=== PATIENT | female | born 1950 | race Caucasian/White ===

== ENCOUNTER → 2016-06-23 | Outpatient (CLI) | payer MEDICARE, OTHER ==
[~2016-06-23] MED LIST: ACIDOPHILUS PO; ALDACTONE50 MG PO; ALLEGRA-D TABLE1 TAB PO; CITRUCEL WITH500 MG PO; CLARITIN D TAB1 TAB PO; COLACE50 MG PO; DOXYCYCLINE 10100 MG PO; FLEXERIL 1010 MG/TAB PO; FLEXERIL10 MG PO; KLONOPIN0.5 MG PO; LEVAQUIN 250MG250 MG PO; LORTAB 7.5/5001 TAB PO; MOTRIN 200200 MG/TAB PO; MULTIVITAMIN FO1 CAP PO; NAPROXEN 3375 MG/TAB PO; NAPROXEN ER500 MG PO; NAPROXEN375 MG PO; NEURONTIN100 MG PO; NORCO 325 MG-51 TAB PO; PERCOCET 325 MG1 TA2 PO; PRILOSEC 20MG20 MG PO; PRILOTC; SIMVISTATIN PO; STATIN; TYLENOL 500MG500 MG PO; TYLENOL PM EXTR1 TA1 PO; UNKNOWN ANTIBIOTIC PO; VALIUM10 MG PO; VITAMIN C BUFF500 MG PO; WHEY PROTEIN1 PD1; ZESTRIL40 MG PO; ZOCOR 20MG20 MG PO; ZOCOR20 MG PO; ZYLOPRIM100 MG PO; [UNRECOGNIZED DRUG - REMARK]
== END ==
LOC: MC.RAD 09:32
DX: Z12.31 Encounter for screening mammogram for malignant neoplasm of breast (principal)

== ENCOUNTER → 2016-07-26 | Outpatient (CLI) | payer MEDICARE, OTHER ==
[~2016-07-26] VITALS: Ht 160 cm; Wt 86.3 kg
[2016-07-26] VITALS (16 sets, daily range): BP systolic 130–149; BP diastolic 69–758; PULSE 62–76
== END ==
LOC: COL.RAD 06:58
DX: D16.7 Benign neoplasm of ribs, sternum and clavicle (principal); C34.31 Malignant neoplasm of lower lobe, right bronchus or lung
CPT/HCPCS: J2250; J3010

== ENCOUNTER → 2017-09-29 | Outpatient (CLI) | payer MEDICARE, OTHER | LOC: MC.RAD 09:40 | DX: Z12.31 Encounter for screening mammogram for malignant neoplasm of breast (principal) ==

== ENCOUNTER → 2018-03-06 | Outpatient (CLI) | payer MEDICARE, OTHER | LOC: COL.RAD 09:07 | DX: C34.31 Malignant neoplasm of lower lobe, right bronchus or lung (principal); M43.16 Spondylolisthesis, lumbar region | CPT/HCPCS: A9503 ==

== ENCOUNTER → 2018-08-03 | Outpatient (CLI) | payer MEDICARE, OTHER | LOC: COL.RAD 07:30 | DX: D37.5 Neoplasm of uncertain behavior of rectum (principal); M43.8X4 Other specified deforming dorsopathies, thoracic region; M89.9 Disorder of bone, unspecified; K62.89 Other specified diseases of anus and rectum; Z98.890 Other specified postprocedural states | CPT/HCPCS: Q9967 ==

== ENCOUNTER 2018-09-02 10:01 | Emergency (ER) | payer MEDICARE, OTHER ==
[~2018-09-02] VITALS: Ht 160 cm; Wt 72.7 kg
[2018-09-02 10:06] VITALS: TEMP 97
[2018-09-02] MEDS ORDERED: ADVIL200 MG PO (10:13)
[2018-09-02 10:46] LABS: BASO % 0.2 % (0.0-2.0); EOS % 0.2 % (0-4.0); GRAN # 9.5 (1.4-6.5); GRAN % 87.1 % (42.2-75.2); HEMOGLOBIN 10.9 g/dl (12.5-16.0); LYMPH # 0.8 (1.2-3.4); LYMPH % 7.6 % (20.0-51.0); MEAN CELL VOLUME 81 fl (80.0-100.0); MEAN CORPUSCULAR HEMOGLOBIN 25 pg (27.0-31.0); MEAN CORPUSCULAR HGB CONC 31 g/dl (33.0-37.0); MEAN PLATELET VOLUME 8.7 fl (7.4-10.4); MONO # 0.5 (0.1-0.6); MONO % 4.6 % (1.7-9.3); PLATELET COUNT 474 K/mm3 (130-400); RED BLOOD COUNT 4.38 M/mm3 (4.10-5.30); REDCELL DISTRIBUTION WIDTH-CV 16.5 % (11.5-14.5)
[2018-09-02 10:47] LABS: HEMATOCRIT 35.6 % (37.0-47.0)
[2018-09-02 10:56] LABS: ALBUMIN 2.9 gm/dL (3.5-5.0); BILIRUBIN,TOTAL 0.4 mg/dL (0.0-1.0); C-REACTIVE PROTEIN 7.8 mg/dL (0.0-0.9); CALCIUM 9.7 mg/dL (8.4-10.2); CREATININE, serum 0.57 (0.52-1.25); POTASSIUM 3.7 mmol/L (3.4-5.0); TOTAL PROTEIN 6.3 gm/dL (6.4-8.2)
[2018-09-02 14:48] VITALS: BP 135/86; PULSE 90
== END 2018-09-02 14:45 | disposition short-term general hospital (02) ==
LOC: COL.ER 10:01
PROVIDERS: Family Medicine
DX: K56.609 Unspecified intestinal obstruction, unspecified as to partial versus complete obstruction (principal); K62.89 Other specified diseases of anus and rectum
CPT/HCPCS: J2270; J2405; J7030; Q9967

== ENCOUNTER 2018-09-26 11:41 | Inpatient (IN) | payer MEDICARE, OTHER ==
[2018-09-26] VITALS (123 sets, daily range): BP systolic 104–119; BP diastolic 45–66; PULSE 71–78; TEMP 98.1; O2SAT 75–100
[~2018-09-26] VITALS: Ht 160 cm; Wt 69.4 kg
[~2018-09-26 11:41] MED LIST changes: +ADVIL200 MG PO
[2018-09-26 12:34] LABS: MEAN CELL VOLUME 83 fl (80.0-100.0); MEAN CORPUSCULAR HGB CONC 30 g/dl (33.0-37.0); MEAN PLATELET VOLUME 9.5 fl (7.4-10.4); PLATELET COUNT 205 K/mm3 (130-400); RED BLOOD COUNT 3.52 M/mm3 (4.10-5.30); REDCELL DISTRIBUTION WIDTH-CV 18.6 % (11.5-14.5)
[2018-09-26 12:43] LABS: BILIRUBIN,TOTAL 0.2 mg/dL (0.0-1.0); CALCIUM 9.4 mg/dL (8.4-10.2); CREATININE, serum 0.59 (0.52-1.25); POTASSIUM 3.9 mmol/L (3.4-5.0); TOTAL PROTEIN 6.1 gm/dL (6.4-8.2)
[2018-09-26 12:44] LABS: HEMATOCRIT 29.1 % (37.0-47.0); HEMOGLOBIN 8.8 g/dl (12.5-16.0); MEAN CORPUSCULAR HEMOGLOBIN 25 pg (27.0-31.0)
[2018-09-26 13:04] LABS: BAND 28 % (0-10); EOSINOPHIL 1 % (0-4); LYMPHOCYTE 24 % (20.0-51.0); NEUTROPHILS 30 % (42.0-75.2)
[2018-09-26 13:05] LABS: HYPOCHROMIA 2+; PLATELET ESTIMATE NORMAL (NORMAL)
[2018-09-26 13:21] LABS: COLLECTION METHOD CATHETER
[2018-09-26 13:31] LABS: MUCOUS Present /lpf; PH 6 (5-8); SQUAMOUS EPITHELIAL 0-2 /hpf; URINE APPEARANCE Clear; URINE BACTERIA None Seen /hpf; URINE BILIRUBIN Negative (NEGATIVE); URINE BLOOD Negative (NEGATIVE); URINE COLOR Yellow; URINE GLUCOSE Negative (NEGATIVE); URINE KETONE Negative (NEGATIVE); URINE LEUKOCYTE ESTERASE Negative (NEGATIVE); URINE NITRATE Negative (NEGATIVE); URINE PROTEIN(semi-quant) Negative (NEGATIVE); URINE RBC 0-2 /hpf; URINE UROBILINOGEN Negative (NEGATIVE)
[2018-09-26] MEDS ORDERED: MIRALAX PA17 GM/Dose PO (16:45)
--- NOTE | 2018-09-26 17:30 | NUR ---
Report received from Sergey BORGES in ER and pt brought by magali to ICU 3. Pt able to ambulate from stretcher to bathroom then to bed. Placed on monitor and assessment complete. Home meds reviewed and along with orders. Questions answered. Pt resting at this time. Denies any needs or concerns. Will continue to follow.
--- NOTE | 2018-09-26 19:11 | NUR ---
Report given to Genevieve BORGES and care transfered.
--- NOTE | 2018-09-26 19:14 | NUR ---
received report from adiel tejada. medications varified. patient denies any pain at this time. will complete patient assessment at a later time. will continue to monitor.
[2018-09-27] VITALS (374 sets, daily range): BP systolic 111–128; BP diastolic 43–81; PULSE 64–105; TEMP 97.6–98.3; O2SAT 66–100
[2018-09-27 05:20] LABS: ALBUMIN 2.3 gm/dL (3.5-5.0); BILIRUBIN,TOTAL 0.1 mg/dL (0.0-1.0); CALCIUM 9.2 mg/dL (8.4-10.2); CREATININE, serum 0.46 (0.52-1.25); POTASSIUM 3.4 mmol/L (3.4-5.0)
--- NOTE | 2018-09-27 07:20 | NUR ---
gave report to adiel patel.
[2018-09-27 07:49] LABS: HEMOGLOBIN 8.1 g/dl (12.5-16.0); MEAN CELL VOLUME 84 fl (80.0-100.0); MEAN CORPUSCULAR HEMOGLOBIN 25 pg (27.0-31.0); MEAN CORPUSCULAR HGB CONC 30 g/dl (33.0-37.0); MEAN PLATELET VOLUME 9.1 fl (7.4-10.4); PLATELET COUNT 217 K/mm3 (130-400); RED BLOOD COUNT 3.21 M/mm3 (4.10-5.30); REDCELL DISTRIBUTION WIDTH-CV 18.6 % (11.5-14.5)
--- NOTE | 2018-09-27 08:00 | NUR ---
Shift assessment complete at this time. Plan of care reviewed at bedside with patient et spouse. Additional time taken to address any other needs or concerns. Vitals stable at this time. Colostomy stoma pink/red et intact. Reports moderate pain at a scale of 6/10. Reports 4 as tolerable. Will administer PRN Tylenol, see EMAR for documentation. Bed in low position, call light within reach. Will continue to monitor.
--- NOTE | 2018-09-27 08:38 | NUR ---
MARC met with the patient to discuss a discharge plan. The pt lives [place] of [place] with her Chang. The pt does not use any DME and reports independence with ADLs. The pt's PCP is Dr. Mir and the pt receives her medications from [facility]. The pt reports no difficulties obtaining her medications. The pt does not have advanced directives in the EMR, but report she does have them completed and names her as DPOA-HC. The pt plans to return home after discharge. There are no additional needs at this time.
[2018-09-27 09:19] LABS: BAND 35 % (0-10); EOSINOPHIL 5 % (0-4); LYMPHOCYTE 26 % (20.0-51.0); NEUTROPHILS 13 % (42.0-75.2); NUCLEATED RED BLOOD CELL 1 (0-6); PLATELET ESTIMATE NORMAL (NORMAL)
[2018-09-27 09:20] LABS: ANISOCYTOSIS 1+
--- NOTE | 2018-09-27 10:04 | NUR ---
Initial visit; Patient thanked Bakery Supervisor for looking in on her and offering spiritual Care and prayers.
--- NOTE | 2018-09-27 12:00 | NUR ---
Pt resting in bed. Reports tolerable pain and declines any further intervention at this time. Awaiting for medical room to be cleaned and Pt will be transferred. Denies any other discomforts. Vitals stable. Will continue to monitor. Bed in low position, call light within reach.
--- NOTE | 2018-09-27 19:21 | NUR ---
Pt up from ICU late this afternoon, no C/O pain since arriving, Vs have been stable. family has been in the room with Pt.
--- NOTE | 2018-09-27 20:00 | NUR ---
Pt resting with HOB elevated. Family at bedside. 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 Pt was given Tylenol by cinda RN. No distress noted. Respirations even and unlabored. Bilateral lung bases diminished. Bilateral upper lobes clear to auscultation. BS+. Abdomen soft, nontender. LLQ colostomy in place. R chest port flushing well. R H INT discontinued per pt request. Catheter intact. No needs noted at this time.
--- NOTE | 2018-09-27 21:15 | NUR ---
Pt resting. No distress noted. HS medications given. Pt reports that Tylenol given by dayshift is working for pain management. No further needs noted.
[2018-09-28 03:28] VITALS: BP 138/58; PULSE 76; TEMP 98.1
[2018-09-28 06:24] LABS: MEAN CELL VOLUME 82 fl (80.0-100.0); MEAN CORPUSCULAR HGB CONC 31 g/dl (33.0-37.0); MEAN PLATELET VOLUME 9.4 fl (7.4-10.4); PLATELET COUNT 238 K/mm3 (130-400); RED BLOOD COUNT 3.08 M/mm3 (4.10-5.30); REDCELL DISTRIBUTION WIDTH-CV 18.7 % (11.5-14.5)
[2018-09-28 06:26] LABS: HEMATOCRIT 25.2 % (37.0-47.0); HEMOGLOBIN 7.7 g/dl (12.5-16.0); MEAN CORPUSCULAR HEMOGLOBIN 25 pg (27.0-31.0)
[2018-09-28 07:03] LABS: BAND 33 % (0-10); BASOPHIL 1 % (0-2); EOSINOPHIL 9 % (0-4); LYMPHOCYTE 28 % (20.0-51.0); NEUTROPHILS 17 % (42.0-75.2); NUCLEATED RED BLOOD CELL 1 (0-6); PLATELET ESTIMATE NORMAL (NORMAL)
[2018-09-28 07:04] LABS: ANISOCYTOSIS 2+; HYPOCHROMIA 1+; OVALOCYTES 2+
[2018-09-28 07:05] LABS: POLYCHROMASIA 1+
[2018-09-28 07:33] VITALS: BP 138/62; PULSE 52; TEMP 98
[2018-09-28 08:12] LABS: PATHOLOGY DIFF REVIEW OK
--- NOTE | 2018-09-28 10:00 | NUR ---
Pt up in bed sitting on edge of bed, family in room with Pt, Pt asked for PRN Tylenol, shift assessments complete, left Pt call light in reach, bed in lowest position.
[2018-09-28 11:33] VITALS: BP 118/55; PULSE 81; TEMP 97.7
--- NOTE | 2018-09-28 16:44 | NUR ---
Pt discharged to home, all questions / concerns answered, Pt escorted to curbside.
== END 2018-09-28 16:45 | disposition home or self-care (01) | DRG 872 ==
LOC: COL.ER 11:41 → ICU 14:40 → MEDICAL 09-27 12:38
PROVIDERS: Emergency Medicine; Physician Assistant
DX: A41.9 Sepsis, unspecified organism (principal); C20 Malignant neoplasm of rectum; G93.40 Encephalopathy, unspecified; E87.2 Acidosis; I95.9 Hypotension, unspecified; M54.5 Low back pain; E66.9 Obesity, unspecified; E78.5 Hyperlipidemia, unspecified; Z93.3 Colostomy status; Z92.3 Personal history of irradiation; Z90.2 Acquired absence of lung [part of]; Z90.49 Acquired absence of other specified parts of digestive tract; Z88.0 Allergy status to penicillin; Z88.2 Allergy status to sulfonamides; Z92.21 Personal history of antineoplastic chemotherapy; R50.81 Fever presenting with conditions classified elsewhere; D70.9 Neutropenia, unspecified; D55.8 Other anemias due to enzyme disorders; D64.9 Anemia, unspecified; E83.52 Hypercalcemia
CPT/HCPCS: 99223-AI; 99232-AI; 99239; A4216; J0456; J0692; J0696; J1644; J3370; J7030; J7050; J7120

== ENCOUNTER 2018-11-03 09:32 | Inpatient (IN) | payer MEDICARE, OTHER ==
[~2018-11-03] VITALS: Ht 160 cm; Wt 74.5 kg
[2018-11-03] VITALS (496 sets, daily range): BP systolic 105–129; BP diastolic 56–71; PULSE 79–85; TEMP 097.9–98; O2SAT 81–100
[~2018-11-03 09:32] MED LIST changes: +MIRALAX PA17 GM/Dose PO
[2018-11-03 10:23] LABS: MEAN CELL VOLUME 86 fl (80.0-100.0); MEAN CORPUSCULAR HGB CONC 32 g/dl (33.0-37.0); MEAN PLATELET VOLUME 9.6 fl (7.4-10.4); PLATELET COUNT 252 K/mm3 (130-400); RED BLOOD COUNT 3.52 M/mm3 (4.10-5.30)
[2018-11-03 10:29] LABS: HEMATOCRIT 30.1 % (37.0-47.0); HEMOGLOBIN 9.5 g/dl (12.5-16.0); MEAN CORPUSCULAR HEMOGLOBIN 27 pg (27.0-31.0)
[2018-11-03 10:34] LABS: ALBUMIN 2.7 gm/dL (3.5-5.0); BILIRUBIN,TOTAL 0.4 mg/dL (0.0-1.0); CALCIUM 9.2 mg/dL (8.4-10.2); CREATININE, serum 0.54 (0.52-1.25); TOTAL PROTEIN 5.6 gm/dL (6.4-8.2)
[2018-11-03 10:49] LABS: C-REACTIVE PROTEIN 13.4 mg/dL (0.0-0.9)
[2018-11-03 11:54] LABS: ANISOCYTOSIS 4+; BAND 8 % (0-10); LYMPHOCYTE 2 % (20.0-51.0); MYELOCYTE 1 % (0-0); NEUTROPHILS 85 % (42.0-75.2)
[2018-11-03 11:55] LABS: HYPOCHROMIA 2+; PLATELET ESTIMATE NORMAL (NORMAL); TEAR DROP CELLS 1+
--- NOTE | 2018-11-03 15:15 | NUR ---
Report recieved from JONY King
[2018-11-03 15:17] LABS: COLLECTION METHOD CATHETER
[2018-11-03 15:25] LABS: MUCOUS Present /lpf; PH 6 (5-8); SQUAMOUS EPITHELIAL 0-2 /hpf; URINE APPEARANCE Clear; URINE BACTERIA None Seen /hpf; URINE BILIRUBIN Negative (NEGATIVE); URINE BLOOD Negative (NEGATIVE); URINE COLOR Yellow; URINE GLUCOSE Negative (NEGATIVE); URINE KETONE Negative (NEGATIVE); URINE LEUKOCYTE ESTERASE Negative (NEGATIVE); URINE NITRATE Negative (NEGATIVE); URINE PROTEIN(semi-quant) Negative (NEGATIVE); URINE RBC 0-2 /hpf; URINE UROBILINOGEN Negative (NEGATIVE)
--- NOTE | 2018-11-03 15:30 | NUR ---
Pt arrived from ED, pt transfered self by slding from cart to ICU bed - pt did have difficulty d/t weakness. Pt AAOx4 requesting admission questions be directed towards so pt can sleep. Pt did recieve 50mcg Fentanyl prior to transporting to unit, denies pain in abdomen at this time. and [id number] at bedside expressing concern on pt status.
[2018-11-03] MEDS ORDERED: ZOVIRAX 200MG200 MG PO ×2 (18:05→18:06)
--- NOTE | 2018-11-03 19:00 | NUR ---
Bedside report handed off to JONY Rob. , [id number] and grand-daughter at pt's bedside visiting. Pt much more alert than upon admission. Questions invited to pt and family and all answered
--- NOTE | 2018-11-03 19:00 | NUR ---
Report received from Tavares Smith RN. Pt resting in room with family members X3 at bedside. Pt reports pain at this time is 0/10. Denies any wants or needs at this time.
--- NOTE | 2018-11-03 19:00 | NUR ---
Report received from Tavares Smith RN. Pt resting in bed at this time with television on and family X3 at bedside.
[2018-11-04] VITALS (361 sets, daily range): BP systolic 99–137; BP diastolic 52–93; PULSE 73–88; TEMP 97.5–98.5; O2SAT 79–100
--- NOTE | 2018-11-04 03:00 | NUR ---
Pts IV pump is beeping when assessing the pt bowel was noted to be on pts brief. Pt was encouraged to change brief and when drainage was noted to be on the pts sheets while pt was standing at the side of the bed the linens were then changed. Pt assisted with bed change and was stable with movements. Colostomy bag was changed with stoma looking beefy red and moist. Pt denies any pain and no noted sx of pain when up. Drainage noted to brief with change and pt reported that drainage is normal, yellow and light brown in coloration. Pt was independent with sabino care per pt request and was assisted back into bed. Pt refused a bed bath at this time.
--- NOTE | 2018-11-04 07:15 | NUR ---
Report provided to Demetria Valdez RN.
--- NOTE | 2018-11-04 07:30 | NUR ---
Bedside report provided to Annie BORGES.
--- NOTE | 2018-11-04 07:40 | NUR ---
Report received from Liane BORGES and care resumed.
--- NOTE | 2018-11-04 08:30 | NUR ---
Assessment complete. Pt denies any pain at this time. Colostomy appliance noted to be leaking. Pt helped up to bathroom and cleaned up then new appliance applied. Pt denies any further needs at this time. Will continue to follow.
[2018-11-04 09:07] LABS: MEAN CELL VOLUME 87 fl (80.0-100.0); MEAN CORPUSCULAR HGB CONC 30 g/dl (33.0-37.0); MEAN PLATELET VOLUME 9.9 fl (7.4-10.4); PLATELET COUNT 173 K/mm3 (130-400); RED BLOOD COUNT 3.31 M/mm3 (4.10-5.30)
[2018-11-04 09:11] LABS: HEMATOCRIT 28.8 % (37.0-47.0); HEMOGLOBIN 8.6 g/dl (12.5-16.0); MEAN CORPUSCULAR HEMOGLOBIN 26 pg (27.0-31.0)
[2018-11-04 09:22] LABS: ANISOCYTOSIS 2+; BAND 25 % (0-10); LYMPHOCYTE 5 % (20.0-51.0); NEUTROPHILS 67 % (42.0-75.2); PLATELET ESTIMATE NORMAL (NORMAL)
[2018-11-04 09:40] LABS: CALCIUM 8.5 mg/dL (8.4-10.2); CREATININE, serum 0.47 (0.52-1.25); POTASSIUM 3.3 mmol/L (3.4-5.0)
--- NOTE | 2018-11-04 09:51 | NUR ---
Dr Chavis in to see pt at this time. No concerns, will plan to tranfer to floor.
--- NOTE | 2018-11-04 15:43 | NUR ---
Pt remains resting at this time. VSS. Denies any pain. Will continue to follow.
--- NOTE | 2018-11-04 17:22 | NUR ---
Report called to Herrera BORGES. Pt to transfer to medical floor on tele.
--- NOTE | 2018-11-04 17:39 | NUR ---
Pt taken up on tele per wheelchair to room 317.
--- NOTE | 2018-11-04 18:21 | NUR ---
patient arrived to medical floor [address] at this time, she is alert/oriented, stand by transfer from wheelchair to bed, denies pain, vital signs have been stable, denies needs, family present
--- NOTE | 2018-11-04 20:00 | NUR ---
Shift assessment complete. Pt resting in bed, awake, a&o, cooperative c cares. Pt denies pain or any other c/o at this time. IV patent. Ostomy noted to abd, s complication, assisted to change appliance to own supplies per pt request. Pt denies any other needs. Call light in reach, will monitor.
[2018-11-05 04:06] VITALS: BP 124/83; PULSE 80; TEMP 98.9
[2018-11-05 07:03] LABS: MEAN CELL VOLUME 87 fl (80.0-100.0); MEAN CORPUSCULAR HGB CONC 30 g/dl (33.0-37.0); MEAN PLATELET VOLUME 10.2 fl (7.4-10.4); PLATELET COUNT 150 K/mm3 (130-400); REDCELL DISTRIBUTION WIDTH-CV 20.2 % (11.5-14.5)
[2018-11-05 07:15] LABS: ALANINE AMINOTRANSFERASE 14 U/L (9-52); ALKALINE PHOSPHATASE 181 U/L (50-136); ANION GAP 5 mmol/L (7-16); AST,SGOT 11 U/L (15-37); BILIRUBIN,TOTAL < 0.1 mg/dL (0.0-1.0); BLOOD UREA NITROGEN 8 mg/dL (7-17); CALCIUM 8.1 mg/dL (8.4-10.2); CARBON DIOXIDE 25 mmol/L (22-30); CHLORIDE 109 mmol/L (98-107); CREATININE, serum 0.44 (0.52-1.25); GLUCOSE 108 mg/dL (74-106); POTASSIUM 3.2 mmol/L (3.4-5.0); SODIUM 139 mmol/L (137-145); TOTAL PROTEIN 4.5 gm/dL (6.4-8.2)
[2018-11-05 07:32] LABS: HEMATOCRIT 25.3 % (37.0-47.0); HEMOGLOBIN 7.5 g/dl (12.5-16.0); MEAN CORPUSCULAR HEMOGLOBIN 26 pg (27.0-31.0)
--- NOTE | 2018-11-05 08:00 | NUR ---
PATIENT IS A&O. VSS. HR IN 80'S ON TELE. DENIES PAIN. HEAD TO TOE ASSESSMENT WNL. COLOSTOMY SMALL AMOUNTS OF STOOL AND GAS NOTED IN BAG. WAFER INTACT. ABDOMIN IS SOFT, ROUND AND WITH POSITIVE BOWL SOUNDS. INDEPENDENT IN ROOM. PATIENT REPORTS WEAKNESS IS BETTER AND FEELS MUCH BETTER. PATIENT HOPING TO DISCHARGE HOME TODAY. AM MEDS GIVEN. NO OTHER NEEDS AT THIS TIME.
[2018-11-05 08:43] LABS: ANISOCYTOSIS 1+; BAND 37 % (0-10); LYMPHOCYTE 9 % (20.0-51.0); NEUTROPHILS 53 % (42.0-75.2); PLATELET ESTIMATE NORMAL (NORMAL)
[2018-11-05 08:44] LABS: HYPOCHROMIA 2+; POIKILOCYTOSIS 1+; TARGET CELLS 1+
[2018-11-05 09:01] VITALS: BP 155/80; PULSE 73; TEMP 98
[2018-11-05 11:05] VITALS: BP 144/87; PULSE 80; TEMP 98.6
--- NOTE | 2018-11-05 11:48 | NUR ---
First visit from the district associate judge. No needs right now.
--- NOTE | 2018-11-05 15:50 | NUR ---
MARC met with the patient to discuss discharge plan. The patient lives [place] miles north of [place] with her , Chang. She reports independence with ADLs and has a cane and walker. The patient's PCP was Dr. Melany Mir, but has since switched since Dr. Mir moved. The patient could not recall who she was switched to. She receives her medications at [facility] and she reports no difficulties obtaining her meds. The patient does not have advanced directives in EMR, but she states that she does have them completed and at home. She states her is her DPOA-HC. The patient plans to return home with her upon discharge. No additional needs at this time.
[2018-11-05 15:58] VITALS: BP 145/52; PULSE 81; TEMP 99.3
[2018-11-05 19:49] VITALS: BP 133/71; PULSE 82; TEMP 98.9
[2018-11-06 00:38] VITALS: BP 130/61; PULSE 84; TEMP 99.8
[2018-11-06 04:32] VITALS: BP 122/81; PULSE 83; TEMP 99
[2018-11-06 07:41] VITALS: BP 121/54; PULSE 79; TEMP 98
[2018-11-06 07:47] LABS: MEAN CELL VOLUME 87 fl (80.0-100.0); MEAN CORPUSCULAR HGB CONC 30 g/dl (33.0-37.0); MEAN PLATELET VOLUME 10.3 fl (7.4-10.4); PLATELET COUNT 169 K/mm3 (130-400); RED BLOOD COUNT 3.04 M/mm3 (4.10-5.30)
[2018-11-06 07:49] LABS: HEMATOCRIT 26.4 % (37.0-47.0); HEMOGLOBIN 7.9 g/dl (12.5-16.0); MEAN CORPUSCULAR HEMOGLOBIN 26 pg (27.0-31.0)
[2018-11-06 07:58] LABS: ALBUMIN 2.3 gm/dL (3.5-5.0); BILIRUBIN,TOTAL 0.1 mg/dL (0.0-1.0); CALCIUM 8.7 mg/dL (8.4-10.2); CREATININE, serum 0.45 (0.52-1.25); POTASSIUM 3.1 mmol/L (3.4-5.0); TOTAL PROTEIN 4.8 gm/dL (6.4-8.2)
--- NOTE | 2018-11-06 08:00 | NUR ---
resting in bed, full assessment completed, see interventions for further info,
[2018-11-06 08:25] LABS: BAND 9 % (0-10); EOSINOPHIL 2 % (0-4); LYMPHOCYTE 8 % (20.0-51.0); NEUTROPHILS 78 % (42.0-75.2); PLATELET ESTIMATE NORMAL (NORMAL)
--- NOTE | 2018-11-06 09:20 | NUR ---
resting in bed visiting with her , denies needs, am meds provided
[2018-11-06] MEDS ORDERED: OMNICEF 300MG300 MG PO (10:05)
[2018-11-06] MEDS ORDERED: FLAGYL500 MG PO (10:05)
[2018-11-06] MEDS ORDERED: K-DUR20 MEQ PO (10:06)
[2018-11-06] MEDS ORDERED: PROBIOTIC ACID1 EAC3 PO (10:07)
--- NOTE | 2018-11-06 10:24 | NUR ---
remains resting in bed visitign with
--- NOTE | 2018-11-06 10:30 | NUR ---
The patient is to discharge back home with her today, 11/06. SW presented and explained the IM form to the patient. The patient verbalized understanding, signed, and she was provided a copy. No additional needs at this time.
--- NOTE | 2018-11-06 11:55 | NUR ---
resting in bed, will plan discharge after she has lunch
--- NOTE | 2018-11-06 12:40 | NUR ---
up and about in room preparing for discharge
--- NOTE | 2018-11-06 13:15 | NUR ---
ready for discharge, discharge instructions given to patient and her , verbalizes understanding, discharged per WC
== END 2018-11-06 13:15 | disposition home or self-care (01) | DRG 872 ==
LOC: COL.ER 09:32 → MEDICAL 12:06 → ICU 12:06 → MEDICAL 11-04 17:30
PROVIDERS: Emergency Medicine; Family Medicine; Physician Assistant; ADMIT Student in an Organized Health Care Education/Training Program
DX: A41.9 Sepsis, unspecified organism (principal); A09 Infectious gastroenteritis and colitis, unspecified; C19 Malignant neoplasm of rectosigmoid junction; G89.29 Other chronic pain; M54.9 Dorsalgia, unspecified; E78.5 Hyperlipidemia, unspecified; J30.2 Other seasonal allergic rhinitis; D72.823 Leukemoid reaction; E87.6 Hypokalemia; S51.812A Laceration without foreign body of left forearm, initial encounter; W19.XXXA Unspecified fall, initial encounter; Y92.009 Unspecified place in unspecified non-institutional (private) residence as the place of occurrence of the external cause; Z85.118 Personal history of other malignant neoplasm of bronchus and lung; Z90.710 Acquired absence of both cervix and uterus; Z88.0 Allergy status to penicillin; Z88.2 Allergy status to sulfonamides; Z93.3 Colostomy status
CPT/HCPCS: 99223-AI; 99232-AI; 99239; A4216; J0696; J1650; J2270; J2405; J3010; J7030; Q9967

== ENCOUNTER 2018-11-26 11:44 | Emergency (ER) | payer MEDICARE, OTHER ==
[~2018-11-26] VITALS: Ht 160 cm; Wt 68.2 kg
[~2018-11-26 11:44] MED LIST changes: +FLAGYL500 MG PO; +K-DUR20 MEQ PO; +OMNICEF 300MG300 MG PO; +PROBIOTIC ACID1 EAC3 PO; +ZOVIRAX 200MG200 MG PO
[2018-11-26 11:50] VITALS: BP 138/81
[2018-11-26] MEDS ORDERED: ZOFRAN ODT8 MG SL (12:00)
[2018-11-26] MEDS ORDERED: ANTIVERT 25MG25 MG PO (12:00)
[2018-11-26] MEDS ORDERED: KEYTRUDA25 MG/ML IV (12:01)
[2018-11-26] MEDS ORDERED: NORCO 325 MG-51 TAB PO (12:01)
[2018-11-26 12:37] LABS: MEAN CELL VOLUME 89 fl (80.0-100.0); MEAN CORPUSCULAR HGB CONC 30 g/dl (33.0-37.0); MEAN PLATELET VOLUME 9.6 fl (7.4-10.4); PLATELET COUNT 373 K/mm3 (130-400); RED BLOOD COUNT 3.27 M/mm3 (4.10-5.30); REDCELL DISTRIBUTION WIDTH-CV 19.9 % (11.5-14.5)
[2018-11-26 12:46] LABS: ALBUMIN 2.7 gm/dL (3.5-5.0); BILIRUBIN,TOTAL 0.3 mg/dL (0.0-1.0); CREATININE, serum 1.33 (0.52-1.25); POTASSIUM 3.3 mmol/L (3.4-5.0); TOTAL PROTEIN 5.8 gm/dL (6.4-8.2)
[2018-11-26 12:47] LABS: HEMATOCRIT 29.1 % (37.0-47.0); HEMOGLOBIN 8.8 g/dl (12.5-16.0); MEAN CORPUSCULAR HEMOGLOBIN 27 pg (27.0-31.0)
[2018-11-26 12:55] LABS: BAND 12 % (0-10); LYMPHOCYTE 2 % (20.0-51.0); NEUTROPHILS 82 % (42.0-75.2)
[2018-11-26 12:56] LABS: ANISOCYTOSIS 2+; HYPOCHROMIA 1+; PLATELET ESTIMATE NORMAL (NORMAL)
[2018-11-26 13:27] LABS: COLLECTION METHOD CATHETER
[2018-11-26 13:41] LABS: MUCOUS Present /lpf; PH 6 (5-8); SQUAMOUS EPITHELIAL 0-2 /hpf; URINE APPEARANCE Clear; URINE BACTERIA None Seen /hpf; URINE BILIRUBIN Negative (NEGATIVE); URINE BLOOD Negative (NEGATIVE); URINE COLOR Yellow; URINE GLUCOSE Negative (NEGATIVE); URINE KETONE Negative (NEGATIVE); URINE LEUKOCYTE ESTERASE Negative (NEGATIVE); URINE NITRATE Negative (NEGATIVE); URINE PROTEIN(semi-quant) Negative (NEGATIVE); URINE RBC 0-2 /hpf; URINE UROBILINOGEN Negative (NEGATIVE)
[2018-11-26] MEDS ORDERED: PHENERGAN 25 TA25 MG PO (17:05)
[2018-11-26] MEDS ORDERED: CEPHALEXIN500 M1 PO (17:27)
[2018-11-26 17:29] VITALS: PULSE 80; TEMP 98.7
== END 2018-11-26 18:00 | disposition home or self-care (01) ==
LOC: COL.ER 11:44
PROVIDERS: Nurse Practitioner Primary Care
DX: C18.9 Malignant neoplasm of colon, unspecified (principal); R11.2 Nausea with vomiting, unspecified; Z90.710 Acquired absence of both cervix and uterus; Z87.891 Personal history of nicotine dependence; Z93.3 Colostomy status
CPT/HCPCS: J1644; J2270; J2550; J7030; Q9967

== ENCOUNTER 2018-12-21 08:53 | Outpatient (RCR) | payer MEDICARE, OTHER ==
[2018-12-21] VITALS (9 sets, daily range): BP systolic 98–129; BP diastolic 50–91; PULSE 68–98; TEMP 98.1–98.3
[~2018-12-21] VITALS: Ht 160 cm; Wt 63.1 kg
[~2018-12-21 08:53] MED LIST changes: +ANTIVERT 25MG25 MG PO; +CEPHALEXIN500 M1 PO; +KEYTRUDA25 MG/ML IV; +PHENERGAN 25 TA25 MG PO; +ZOFRAN ODT8 MG SL
--- NOTE | 2018-12-21 10:30 | NUR ---
1ST unit PRBC's started at 60 ml/hr. VSS
--- NOTE | 2018-12-21 10:54 | NUR ---
Increased rate to 125 ml/hr. VSS
== END 2018-12-21 14:07 | disposition home or self-care (01) ==
LOC: EUO 08:53
DX: C20 Malignant neoplasm of rectum (principal)
CPT/HCPCS: J7050; P9016